=== PATIENT | female | born 1985 | race Caucasian/White ===

== ENCOUNTER 2017-08-10 09:54 | Emergency (ER) | payer SELFPAY, OTHER ==
[2017-08-10 10:40] LABS: URINE PH (Dip) POC 5.5 (5.0-8.5)
[2017-08-10 10:40] LABS: URINE BLOOD (Dip) POC Negative (NEGATIVE); URINE GLUCOSE (Dip) POC Negative (NEGATIVE); URINE KETONES (Dip) POC Negative (NEGATIVE); URINE LEUKOCYTE EST (Dip) POC Negative (NEGATIVE); URINE NITRITE (Dip) POC Negative (NEGATIVE); URINE TOTAL PROTEIN POC 1+ (NEGATIVE)
[2017-08-10] MEDS: DIPHENHYDRAMINE 50 MG CAP PO (10:49)
[2017-08-10] MEDS: predniSOLONE (3 MG/ML) CUP PO (10:50)
== END 2017-08-10 11:11 | disposition home or self-care (01) ==
LOC: FTE 09:54
DX: L29.9 Pruritus, unspecified (principal); L53.9 Erythematous condition, unspecified; R60.9 Edema, unspecified
CPT/HCPCS: 81003; 81025; 99284

== ENCOUNTER 2017-09-14 07:55 | Emergency (ER) | payer SELFPAY ==
[2017-09-14 08:23] LABS: URINE BLOOD (Dip) POC Negative (NEGATIVE); URINE GLUCOSE (Dip) POC Negative (NEGATIVE); URINE KETONES (Dip) POC 2+ (NEGATIVE); URINE LEUKOCYTE EST (Dip) POC Negative (NEGATIVE); URINE NITRITE (Dip) POC Negative (NEGATIVE); URINE TOTAL PROTEIN POC Negative (NEGATIVE)
[2017-09-14 08:23] LABS: URINE PH (Dip) POC 5.5 (5.0-8.5)
[2017-09-14] MEDS: KETOROLAC 30 MG INJ IM (08:31)
== END 2017-09-14 09:36 | disposition home or self-care (01) ==
LOC: FTE 07:55
DX: N83.201 Unspecified ovarian cyst, right side (principal); R10.2 Pelvic and perineal pain; F17.210 Nicotine dependence, cigarettes, uncomplicated
CPT/HCPCS: 76830; 76856; 81003; 81025; 96372; 99285-25

== ENCOUNTER 2017-09-14 15:34 | Inpatient (IN) | payer SELFPAY ==
[2017-09-14] MEDS: ONDANSETRON 4 MG INJ IV (16:28)
[2017-09-14] MEDS: SOD CHLORIDE 0.9% 1,000 ML IV (16:29)
[2017-09-14] MEDS: HYDROmorphONE 1 MG/ML SYG IV (16:29)
[2017-09-14 16:45] LABS: ADD MAN DIFF? NO
[2017-09-14 16:47] LABS: WHITE BLOOD COUNT 8.2 10^3/ul (4.8-10.8)
[2017-09-14 16:47] LABS: BASOPHILS % 0.5 % (0.0-2.0); EOSINOPHILS # 0.1 10^3/ul (0.0-0.5); EOSINOPHILS % 0.7 % (0.0-7.0); HEMATOCRIT 39.6 % (37.0-47.0); LYMPHOCYTES # 2.4 10^3/ul (0.8-2.9); LYMPHOCYTES % 29.4 % (15.0-51.0); MEAN CORPUSCULAR HEMOGLOBIN 32.6 pg (29.0-33.0); MEAN CORPUSCULAR HGB CONC 35.4 g/dl (32.0-37.0); MEAN CORPUSCULAR VOLUME 92.1 fl (82.0-101.0); MEAN PLATELET VOLUME 9.5 fl (7.4-10.4); MONOCYTE # 0.5 10^3/ul (0.3-0.9); MONOCYTES % 6.6 % (0.0-11.0); NEUTROPHIL # 5.1 10^3/ul (1.6-7.5); NEUTROPHILS % 62.4 % (39.0-77.0); PLATELET COUNT 380 10^3/UL (140-415); RED CELL DISTRIBUTION WIDTH 12.5 % (11.5-14.5)
[2017-09-14 16:52] LABS: ADD UMIC YES; UR ASCORBIC ACID 40 mg/dL (NEGATIVE); UR BILIRUBIN (Dip) NEGATIVE (NEGATIVE); UR BLOOD (Dip) NEGATIVE (NEGATIVE); UR CLARITY SLIGHTLY CLOUDY (CLEAR); UR COLOR YELLOW (YELLOW); UR GLUCOSE (Dip) NEGATIVE (NEGATIVE); UR KETONES (Dip) 2+ mg/dL (NEGATIVE); UR LEUKOCYTE ESTERASE (Dip) NEGATIVE Leu/ul (NEGATIVE); UR MUCUS FEW /HPF (NONE SEEN); UR NITRITE (Dip) NEGATIVE (NEGATIVE); UR RBC 4 /HPF (0-5); UR SPECIFIC GRAVITY (Dip) 1.026 (1.003-1.030); UR SQUAMOUS EPITHELIAL CELL FEW /HPF (FEW); UR TOTAL PROTEIN (Dip) 1+ mg/dl (NEGATIVE); UR UROBILINOGEN (Dip) NEGATIVE (NEGATIVE); UR WBC 3 /HPF (0-5)
[2017-09-14 17:07] LABS: ALANINE AMINOTRANSFERASE 77 IU/L (13-69); ALBUMIN 4.5 g/dl (3.3-4.9); ALBUMIN/GLOBULIN RATIO 1.18; ALKALINE PHOSPHATASE 74 IU/L (42-121); ANION GAP 16 (8-16); ASPARTATE AMINO TRANSFERASE 43 IU/L (15-46); BILIRUBIN,INDIRECT 0.7 mg/dl (0-1.1); BILIRUBIN,TOTAL 0.7 mg/dl (0.2-1.3); BLOOD UREA NITROGEN 10 mg/dl (7-20); CALCIUM 9.7 mg/dl (8.4-10.2); CARBON DIOXIDE 20 mmol/L (21-31); CHLORIDE 108 mmol/L (97-110); CREATININE 0.53 mg/dl (0.44-1.00); GLUCOSE 127 mg/dl (70-220); LIPASE 112 U/L (23-300); POTASSIUM 3.6 mmol/L (3.5-5.1); SODIUM 140 mmol/L (135-144); TOTAL PROTEIN 8.3 g/dl (6.1-8.1)
[2017-09-14] MEDS ORDERED: HYDROmorphONE 2 MG/ML SYG IV (18:39)
[2017-09-14] MEDS: ONDANSETRON (ODT) 4 MG TAB ODT (18:48)
[2017-09-14] MEDS: KETOROLAC 30 MG INJ IV (18:59)
[2017-09-14] MEDS: CEFAZOLIN 2 GM/50 ML (PMX) 50 ML IVPB (20:13)
[2017-09-14] MEDS ORDERED: PROPOFOL 20 ML (20:56)
[2017-09-14] MEDS ORDERED: ROCURONIUM 50 MG INJ (20:56)
[2017-09-14] MEDS ORDERED: MIDAZOLAM 1 MG/ML 2 ML INJ (20:56)
[2017-09-14] MEDS ORDERED: EPHEDrine SULFATE 50 MG/5 ML SYG IV (21:00)
[2017-09-14] MEDS ORDERED: HYDROmorphONE 1 MG/5 ML IV SYRINGE IV ×3 (21:00)
[2017-09-14] MEDS ORDERED: METOCLOPRAMIDE 10 MG INJ IV (21:00)
[2017-09-14] MEDS ORDERED: ONDANSETRON 4 MG INJ IV ×2 (21:00→23:30)
[2017-09-14] MEDS ORDERED: DIPHENHYDRAMINE 50 MG INJ IV (21:00)
[2017-09-14] MEDS ORDERED: FENTAnyl 50 MCG/ML VIAL IV ×3 (21:00)
[2017-09-14] MEDS ORDERED: ROPIVACAINE 0.2% 200 ML (21:00)
[2017-09-14 21:01] LABS: ADD MAN DIFF? NO
[2017-09-14] MEDS ORDERED: ROPIVACAINE 0.5 % 30 ML VIAL (21:01)
[2017-09-14 21:03] LABS: WHITE BLOOD COUNT 9.9 10^3/ul (4.8-10.8)
[2017-09-14 21:03] LABS: BASOPHILS % 0.4 % (0.0-2.0); HEMATOCRIT 38.3 % (37.0-47.0); HEMOGLOBIN 13.5 g/dl (12.0-16.0); LYMPHOCYTES # 1.3 10^3/ul (0.8-2.9); LYMPHOCYTES % 12.7 % (15.0-51.0); MEAN CORPUSCULAR HGB CONC 35.2 g/dl (32.0-37.0); MEAN CORPUSCULAR VOLUME 93.6 fl (82.0-101.0); MEAN PLATELET VOLUME 9.4 fl (7.4-10.4); MONOCYTE # 0.3 10^3/ul (0.3-0.9); MONOCYTES % 2.7 % (0.0-11.0); NEUTROPHIL # 8.3 10^3/ul (1.6-7.5); NEUTROPHILS % 83.5 % (39.0-77.0); PLATELET COUNT 371 10^3/UL (140-415); RED BLOOD COUNT 4.09 10^6/ul (4.20-5.40); RED CELL DISTRIBUTION WIDTH 12.5 % (11.5-14.5)
[2017-09-14] MEDS ORDERED: SUGAMMADEX SODIUM 200 MG/2 ML VIAL IV (22:33)
[2017-09-14] MEDS ORDERED: METOCLOPRAMIDE 10 MG INJ (22:33)
[2017-09-14] MEDS ORDERED: ONDANSETRON 4 MG INJ (22:33)
[2017-09-14] MEDS ORDERED: KETOROLAC 30 MG INJ (22:33)
[2017-09-14] MEDS ORDERED: ACETAMINOPHEN 1000MG/100ML IV 100 ML (22:33)
[2017-09-14] MEDS ORDERED: DEXAMETHASONE 4 MG/ML 1 ML INJ (22:33)
[2017-09-14] MEDS ORDERED: MAGNESIUM HYDROXIDE 30ML CUP PO (23:30)
[2017-09-14] MEDS ORDERED: SENNA/DOCUSATE NA (8.6MG/50MG) TAB PO (23:30)
[2017-09-14] MEDS ORDERED: OXYCODONE/ACETAMINOPHEN (5/325) TAB PO (23:30)
[2017-09-14] MEDS: CEFAZOLIN 1 GM/50 ML (PMX) 50 ML IVPB (23:30)
[2017-09-14] MEDS ORDERED: BISACODYL 10 MG SUPP PR (23:30)
[2017-09-14] MEDS: MEPERIDINE 25 MG INJ IV (23:41)
[2017-09-15] MEDS: morphine 2 MG INJ IV ×2 (04:09→06:42)
[2017-09-15 05:36] LABS: ADD MAN DIFF? NO
[2017-09-15 05:40] LABS: WHITE BLOOD COUNT 14.7 10^3/ul (4.8-10.8)
[2017-09-15 05:40] LABS: BASOPHILS % 0.1 % (0.0-2.0); HEMATOCRIT 38.1 % (37.0-47.0); HEMOGLOBIN 13.2 g/dl (12.0-16.0); LYMPHOCYTES # 1.3 10^3/ul (0.8-2.9); LYMPHOCYTES % 8.6 % (15.0-51.0); MEAN CORPUSCULAR HEMOGLOBIN 32.4 pg (29.0-33.0); MEAN CORPUSCULAR HGB CONC 34.6 g/dl (32.0-37.0); MEAN CORPUSCULAR VOLUME 93.6 fl (82.0-101.0); MEAN PLATELET VOLUME 9.8 fl (7.4-10.4); MONOCYTE # 0.6 10^3/ul (0.3-0.9); MONOCYTES % 3.8 % (0.0-11.0); NEUTROPHIL # 12.8 10^3/ul (1.6-7.5); NEUTROPHILS % 87.1 % (39.0-77.0); PLATELET COUNT 376 10^3/UL (140-415); RED BLOOD COUNT 4.07 10^6/ul (4.20-5.40); RED CELL DISTRIBUTION WIDTH 12.8 % (11.5-14.5)
[2017-09-15 06:40] LABS: ALANINE AMINOTRANSFERASE 68 IU/L (13-69); ALBUMIN/GLOBULIN RATIO 1.17; ALKALINE PHOSPHATASE 60 IU/L (42-121); ANION GAP 11 (8-16); ASPARTATE AMINO TRANSFERASE 39 IU/L (15-46); BILIRUBIN,INDIRECT 0.6 mg/dl (0-1.1); BILIRUBIN,TOTAL 0.6 mg/dl (0.2-1.3); BLOOD UREA NITROGEN 7 mg/dl (7-20); CALCIUM 9.1 mg/dl (8.4-10.2); CARBON DIOXIDE 24 mmol/L (21-31); CHLORIDE 109 mmol/L (97-110); CREATININE 0.59 mg/dl (0.44-1.00); GLUCOSE 137 mg/dl (70-220); POTASSIUM 4.2 mmol/L (3.5-5.1); SODIUM 140 mmol/L (135-144); TOTAL PROTEIN 7.4 g/dl (6.1-8.1)
[2017-09-15] MEDS: CEFAZOLIN 1 GM/50 ML (PMX) 50 ML IVPB ×2 (06:42→16:54)
[2017-09-15] MEDS: IBUPROFEN 600 MG TAB NGT (09:25)
[2017-09-15] MEDS: ENOXAPARIN 40 MG/0.4 ML SYG SC (09:27)
[2017-09-15] MEDS: OXYCODONE/ACETAMINOPHEN (5/325) TAB PO (21:05)
[2017-09-16] MEDS: ENOXAPARIN 40 MG/0.4 ML SYG SC (09:49)
[2017-09-16] MEDS: OXYCODONE/ACETAMINOPHEN (5/325) TAB PO (11:37)
[2017-09-16] MEDS: IBUPROFEN 600 MG TAB NGT ×2 (14:36→21:47)
[2017-09-16] MEDS: ONDANSETRON 4 MG INJ IV (14:36)
== END 2017-09-16 22:23 | disposition home or self-care (01) | DRG 743 ==
LOC: SDS 20:23 → PP2 23:36 → FTE 15:34
PROC: 0UT60ZZ Resection of Left Fallopian Tube, Open Approach (ICD-10-PCS; principal; 2017-09-14 21:24)
PROC: 0UB10ZZ Excision of Left Ovary, Open Approach (ICD-10-PCS; 2017-09-14 21:24)
PROC: 0UN10ZZ Release Left Ovary, Open Approach (ICD-10-PCS; 2017-09-14 21:24)
PROC: 0U910ZX Drainage of Left Ovary, Open Approach, Diagnostic (ICD-10-PCS; 2017-09-14 21:24)
DX: N83.512 Torsion of left ovary and ovarian pedicle (principal); N83.8 Other noninflammatory disorders of ovary, fallopian tube and broad ligament
CPT/HCPCS: 36415; 74176; 80053; 81001; 83690; 85025; 86900; 86901; 88104; 88305; 96374; 96375; 96376; 99285-25